=== PATIENT | female | born 1985 | race African-American/Black ===

== ENCOUNTER 2022-10-30 12:33 | Emergency (ER) | payer BC, OTHER ==
[2022-10-30 12:47] VITALS: BP 114/66; PULSE 85; RESP 18; TEMP 97.6; BMI 20.3
== END 2022-10-30 16:58 | disposition home or self-care (01) ==
LOC: JER 12:33
DX: S02.2XXA Fracture of nasal bones, initial encounter for closed fracture (principal); W01.0XXA Fall on same level from slipping, tripping and stumbling without subsequent striking against object, initial encounter; Y93.K1 Activity, walking an animal
CPT/HCPCS: 70450-TC; 70486-TC; 99284-25